=== PATIENT | female | born 1985 | race Caucasian/White ===

== ENCOUNTER 2021-08-25 22:06 | Emergency (ER) | payer SELFPAY ==
[2021-08-25 22:24] VITALS: BP 131/85; PULSE 75; RESP 18; TEMP 37.2; O2SAT 97; BMI 47.7
--- NOTE | 2021-08-25 23:34 | CTR_ITS ---
PROCEDURE INFORMATION: Exam: CT Abdomen And Pelvis Without Contrast Exam date and time: 08/26/2021 12:11 AM Age: 36 years old Clinical indication: Other: Belching; Prior surgery; Surgery date: 6+ months; Surgery type: Sindi/ tubal; Additional info: N/v/d and abdominal cramping TECHNIQUE: Imaging protocol: Computed tomography of the abdomen and pelvis without contrast. Radiation optimization: All CT scans at this facility use at least one of these dose optimization techniques: automated exposure control; mA and/or kV adjustment per patient size (includes targeted exams where dose is matched to clinical indication); or iterative reconstruction. COMPARISON: No relevant prior studies available. RADIATION DOSE METRICS: Total DLP (mGy-cm): 1715.94 FINDINGS: Liver: Normal. No mass. Gallbladder and bile ducts: The gallbladder has been removed. No biliary ductal dilatation. Pancreas: Normal. No ductal dilation. Spleen: Normal. No splenomegaly. Adrenal glands: Normal. No mass. Kidneys and ureters: A tiny renal stone is present in the superior pole of the left kidney. The kidneys appear otherwise normal. No ureteral stone or hydronephrosis. Stomach and bowel: Unremarkable. No obstruction. No mucosal thickening. Appendix: The appendix is normal. Intraperitoneal space: Unremarkable. No free air. No significant fluid collection. Vasculature: Unremarkable. No abdominal aortic aneurysm. Lymph nodes: Unremarkable. No enlarged lymph nodes. Urinary bladder: Unremarkable as visualized. Reproductive: The uterus and ovaries appear normal. Bones/joints: Unremarkable. No acute fracture. Soft tissues: Unremarkable. CT/CT abdomen pelvis wo con [id number] IMPRESSION: 1. No acute abnormality is seen in the abdomen or pelvis. 2. Nonobstructing left kidney renal stone. No ureteral stone or hydronephrosis.
--- NOTE | 2021-08-25 23:36 | W.ED.GENADLT ---
HPI - General Adult General: Chief complaint: General Medical Stated complaint: No bowel movement Time Seen by Provider: 08/25/21 23:19 History of Present Illness: Patient is a 36-year-old female comes to the ED with nausea vomiting diarrhea. Symptoms have been going on now for over [address] Frankel for her current GI issues and all testing has come back normal including stool sample labs. She has a history of a bowel obstruction and says she is having similar symptoms from that past episode. She says her bowel movements are always watery. She endorses a lot of abdominal cramping pain as well she has tried a gluten-free diet and it has not helped with symptoms. She describes feeling bloated and gassy. Endorses having nausea and decreased intake. She has had some episodes of emesis over the past week but her last episode of emesis was a couple days ago. Denies any fevers, chills, chest pain, shortness of breath, blood in stool, dysuria or hematuria. Associated symptoms: Reports nausea and vomiting; Deny chest pain, dyspnea, headache(s), rash or palpitations Review of Systems Const: Denies: fever(s), chills or fatigue Eyes: Denies: change in vision or eye discomfort ENMT: Denies: throat pain, odynophagia, nasal discharge or nasal congestion Card: Denies: chest pain, palpitations, edema, swelling of feet/ankles, dyspnea on exertion or orthopnea Resp: Denies: dyspnea, productive cough or non-productive cough GI: Reports: nausea, vomiting, diarrhea, bloating and GI cramping; Denies: abdominal pain, constipation or hematochezia : Denies: flank pain, dysuria or hematuria Musc: Denies: neck pain, back pain or extremity swelling Skin/Breast: Denies: rash or new lesions Neuro: Denies: headache(s), numbness in extremities or weakness in extremities PFSH ED PFSH: Medical History No pertinent family history Surgical History H/O tubal ligation History of cholecystectomy Physical Exam Const: COMMON NORMALS: no acute distress, patient oriented x3 and alert GENERAL APPEARANCE: cooperative and comfortable NUTRITIONAL APPEARANCE: obese morbidly obese HENMT: COMMON NORMALS: normocephalic HEAD & SCALP: normocephalic MOUTH: Normal oral and palatal mucosa present THROAT: posterior oropharynx normal and uvula midline Eye: COMMON NORMALS: Equal, round and reactive pupils present and conjunctivae normal CONJUNCTIVA: Yes conjunctivae normal PUPIL: Yes Equal, round and reactive pupils present Neck/C-Spine: COMMON NORMALS: supple GENERAL: Yes normal visual inspection Resp: COMMON NORMALS: normal respiratory effort, No retractions, No use of accessory muscles and clear to auscultation bilaterally AUSCULTATION: clear to auscultation bilaterally Cardio: COMMON NORMALS: regular rate, regular rhythm, S1 normal heart sound present, S2 normal heart sound present, No gallops present (Cardio), No clicks present (Cardio), No murmurs present (Cardio) and Peripheral pulses 2+ throughout RATE: regular rate RHYTHM: regular rhythm HEART SOUNDS: S1 normal heart sound present and S2 normal heart sound present PERIPHERAL PULSES: Peripheral pulses 2+ throughout GI: COMMON NORMALS: Normal to inspection, nondistended, normoactive bowel sounds present, Soft to palpation, non-tender and no masses INSPECTION: Yes central obesity PALPATION: Yes Soft to palpation OTHER: Patient's abdomen is nontender throughout all 4 quadrants. : COMMON NORMALS: Yes no CVA tenderness BLADDER/KIDNEY EXAM: Yes no CVA tenderness Back/Pelvis: COMMON NORMALS: no CVA tenderness Extremity: COMMON NORMALS: normal to inspection Neuro: COMMON NORMALS: patient oriented x3 and moves all extremities SENSORIUM/ORIENTATION: Yes alert Skin: GENERAL SKIN EXAM: dry skin Course Vital Signs: Vital signs: Vital Signs Temperature 99 F 08/26/21 01:08 Pulse Rate 70 08/26/21 01:08 Respiratory Rate 18 08/26/21 01:08 Blood Pressure 120/74 08/26/21 01:08 Pulse Oximetry 98 08/26/21 01:08 [facility] - General Adult Medical Decision Making Patient is a 36-year-old female comes to the ED with nausea, diarrhea and abdominal cramping. This has been a chronic issue for patient and she sees Dr. Frankel for GI issues. She states she has been through a bunch of testing notes all come back normal. Denies any fevers. Vitals are stable and patient appears nontoxic in no acute distress or pain. She has no abdominal tenderness upon palpation throughout all 4 quadrants. Rest of exam is benign. White blood cell count 11.4 and the rest of CBC, CMP, UA and lipase were unremarkable. hCG serum negative. CT of abdomen pelvis shows no acute abnormality or finding. Patient was given IV fluids and Zofran here in the ED and her symptoms improved. Patient was diagnosed with nausea, abdominal cramping diarrhea and was discharged home with a prescription for dicyclomine and Reglan. She was told to follow-up with her PCP within the next week for reevaluation. Return to ED precautions given. Patient understood agree with plan. Lab Data I reviewed the patient's lab results. : 08/25/21 23:56 08/25/21 23:56 Radiology Impressions Abdomen/Pelvis CT 08/25/21 23:34 IMPRESSION: 1. No acute abnormality is seen in the abdomen or pelvis. 2. Nonobstructing left kidney renal stone. No ureteral stone or hydronephrosis. Laboratory Results WBC 11.4 10^3/uL (4.0-10.0) H 08/25/21 23:56 RBC 5.39 10^6/uL (4.1-5.3) H 08/25/21 23:56 Hgb 14.6 g/dL (11.5-15.3) 08/25/21 23:56 Hct 42.1 % (37.0-47.0) 08/25/21 23:56 MCV 78.1 fl (81-99) L 08/25/21 23:56 MCH 27.1 pg (28.0-34.0) L 08/25/21 23:56 MCHC 34.7 g/dL (30.0-36.0) 08/25/21 23:56 RDW 13.6 % (12.1-15.1) 08/25/21 23:56 Plt Count 326 10^3/cmm (130-400) 08/25/21 23:56 MPV 9.3 fL (7.4-10.4) 08/25/21 23:56 Neut % (Auto) 62.4 % 08/25/21 23:56 Lymph % (Auto) 25.8 % 08/25/21 23:56 Gage % (Auto) 8.8 % 08/25/21 23:56 Eos % (Auto) 2.2 % 08/25/21 23:56 Baso % (Auto) 0.4 % 08/25/21 23:56 Neut # (Auto) 7.13 10^3/uL (1.8-7.7) 08/25/21 23:56 Lymph # (Auto) 3.0 10^3/uL (0.8-4.8) 08/25/21 23:56 Gage # (Auto) 1.0 10^3/uL (0.2-0.9) H 08/25/21 23:56 Eos # (Auto) 0.3 10^3/uL (0.0-0.8) 08/25/21 23:56 Baso # (Auto) 0.0 10^3/uL (0.0-0.1) 08/25/21 23:56 Nucleated RBC % (auto) 0 % 08/25/21 23:56 Nucleated RBCs # 0.0 /100WBC 08/25/21 23:56 Sodium 138 mmol/L (136-145) 08/25/21 23:56 Potassium 3.5 mmol/L (3.5-5.1) 08/25/21 23:56 Chloride 106 mmol/L (98-107) 08/25/21 23:56 Carbon Dioxide 20 mmol/L (22-29) L 08/25/21 23:56 Anion Gap 15.5 (5-19) 08/25/21 23:56 BUN 13 mg/dL (6-20) 08/25/21 23:56 Creatinine 0.8 mg/dL (0.5-0.9) 08/25/21 23:56 GFR Calculation 80.7 mL/min (90-130) L 08/25/21 23:56 Glucose 81 mg/dL (65-115) 08/25/21 23:56 Calculated Osmolality 285 mOsm/kg (285-295) 08/25/21 23:56 Calcium 8.3 mg/dL (8.5-10.5) L 08/25/21 23:56 Total Bilirubin 0.3 mg/dL (0.15-1.2) 08/25/21 23:56 AST 35 U/L (0-32) H 08/25/21 23:56 ALT 45 U/L (0-33) H 08/25/21 23:56 Alkaline Phosphatase 74 IU/L (35-105) 08/25/21 23:56 Total Protein 7.1 g/dL (6.6-8.7) 08/25/21 23:56 Albumin 3.9 g/dL (3.5-5.2) 08/25/21 23:56 Globulin 3.2 g/dL (1.3-4.6) 08/25/21 23:56 Lipase 27 U/L (13-60) 08/25/21 23:56 HCG, Qual Negative (Negative) 08/25/21 23:56 Urine Color Yellow (Yellow) 08/26/21 00:14 Urine Appearance Cloudy (CLEAR) 08/26/21 00:14 Urine pH 5 (5-7) 08/26/21 00:14 Ur Specific [place] 1.025 (1.005-1.030) 08/26/21 00:14 Urine Protein 1+ (Negative) H 08/26/21 00:14 Urine Glucose (UA) Norm (Normal) 08/26/21 00:14 Urine Ketones 1+ (Negative) H 08/26/21 00:14 Urine Blood Trace (Negative) H 08/26/21 00:14 Urine Nitrate Negative (Negative) 08/26/21 00:14 Urine Bilirubin 1+ (Negative) H 08/26/21 00:14 Urine Urobilinogen 4 mg/dL (Negative) H 08/26/21 00:14 Ur Leukocyte Esterase Negative (Negative) 08/26/21 00:14 Urine RBC 0-4 /hpf (0-2) H 08/26/21 00:14 Urine WBC 0-4 /hpf (0-5) H 08/26/21 00:14 Ur Squamous Epith Cells 0-4 /hpf (0-5) H 08/26/21 00:14 Amorphous Sediment 4+ /hpf 08/26/21 00:14 Urine Bacteria Trace /hpf (NONE) 08/26/21 00:14 Discharge Plan Discharge Patient Disposition: Home Clinical Impression: Nausea, Abdominal cramping Diarrhea Qualifiers: Diarrhea type: unspecified type Qualified Code(s): R19.7 - Diarrhea, unspecified Condition: Stable Prescriptions: New dicyclomine 20 mg tablet 20 mg PO QID PRN (Reason: Abdominal cramping) Qty: 30 0RF Reglan 10 mg tablet 10 mg PO Q6H PRN (Reason: nausea and vomiting) Qty: 20 0RF Discharge Orders: Discharge ED (Routine); Ordered 08/26/21 Ordered By: Phil Macias Discharge Diet: Advance as tolerated Discharge Activity: Increase activity as tolerated Activity Restrictions/Additional Instructions: Follow-up with your PCP within the next 7 to 10 days for reevaluation. Take medications as prescribed. Make sure you drink plenty fluids and stay hydrated. Return to the ER or your medical provider if condition worsens. Please read and understand discharge instructions. Thank you for choosing [facility] for your healthcare needs today. Please realize this is an emergency room and that we are providing you with a medical screening exam and this may not be complete and all inclusive of all the testing and or work up that you may need to determine your ailment or severity of your illness. It is very important that you follow up as instructed or that you return to the Emergency Department should you have concerns or if your condition changes or worsens in any way. Coding Level of Care Code ED Equity Manager for Deloris Young Exam Comprehensive
[2021-08-26 00:10] LABS: Basophils % 0.4 %; Eosinophils # 0.3 10^3/uL (0.0-0.8); Eosinophils % 2.2 %; Hematocrit 42.1 % (37.0-47.0); Hemoglobin 14.6 g/dL (11.5-15.3); Lymphocytes % 25.8 %; Mean Corpuscular HGB Conc 34.7 g/dL (30.0-36.0); Mean Corpuscular Hemoglobin 27.1 pg (28.0-34.0); Mean Corpuscular Volume 78.1 fl (81-99); Mean Platelet Volume 9.3 fL (7.4-10.4); Monocytes % 8.8 %; Neutrophils # 7.13 10^3/uL (1.8-7.7); Neutrophils % 62.4 %; Nucleated Red Blood Cells % 0 %; Platelet Count 326 10^3/cmm (130-400); Red Blood Count 5.39 10^6/uL (4.1-5.3); Red Cell Distribution Width 13.6 % (12.1-15.1); White Blood Count 11.4 10^3/uL (4.0-10.0)
[2021-08-26 00:13] LABS: HCG, Serum Qual Negative (Negative)
[2021-08-26] MEDS: sodium chloride 0.9% 1,000 ML 999 ML IV (00:16)
[2021-08-26] MEDS: ondansetron 2 mg/ML SDV 2 mL 4 MG IVP (00:16)
[2021-08-26 00:19] LABS: Alanine Aminotransferase 45 U/L (0-33); Albumin Level 3.9 g/dL (3.5-5.2); Alkaline Phosphatase 74 IU/L (35-105); Anion Gap 15.5 (5-19); Aspartate Amino Transferase 35 U/L (0-32); Blood Urea Nitrogen 13 mg/dL (6-20); Calcium 8.3 mg/dL (8.5-10.5); Carbon Dioxide 20 mmol/L (22-29); Chloride 106 mmol/L (98-107); Creatinine Clr Calc Pharmacy 126.5517; Globulin 3.2 g/dL (1.3-4.6); Glomerular Filtration Rate 80.7 mL/min (90-130); Glucose 81 mg/dL (65-115); Lipase 27 U/L (13-60); Osmolality Calculated 285 mOsm/kg (285-295); Potassium 3.5 mmol/L (3.5-5.1); Sodium 138 mmol/L (136-145); Total Bilirubin 0.3 mg/dL (0.15-1.2); Total Protein 7.1 g/dL (6.6-8.7)
[2021-08-26 00:22] LABS: Amorphous Sediment Urine 4+ /hpf; Bacteria Urine TRACE /hpf; Bilirubin Urine 1+ (Negative); Blood Urine Trace (Negative); Glucose Urine UA Norm (Normal); Ketones Urine 1+ (Negative); Leukocyte Esterase Urine Negative (Negative); Nitrate Urine Negative (Negative); Protein Urine 1+ (Negative); RBC Urine 0-4 /hpf (0-2); Specific Gravity, Urine 1.025 (1.005-1.030); Squamous Epithelial Cell Urine 0-4 /hpf (0-5); Urine Appearance Cloudy (CLEAR); Urine Color Yellow (Yellow); Urobilinogen Urine 4 mg/dL (Negative); WBC Urine 0-4 /hpf (0-5); pH Urine 5 (5-7)
[2021-08-26 00:23] LABS: Add Urine Culture? No; Add Urine Microscopic? YES
[2021-08-26 01:08] VITALS: BP 120/74; PULSE 70; RESP 18; TEMP 37.2; O2SAT 98
[2021-08-26 03:04] VITALS: BP 119/78; PULSE 75; RESP 18; TEMP 37.2; O2SAT 98
== END 2021-08-26 03:05 | disposition home or self-care (01) ==
PROVIDERS: Emergency Provider Physician Assistant
DX: R11.0 Nausea (principal); R10.9 Unspecified abdominal pain; R19.7 Diarrhea, unspecified
CPT/HCPCS: 74176; 80053; 81001; 83690; 84703; 85025; 96361; 96374; 99284; J2405; J7030

== ENCOUNTER 2021-10-20 06:32 | Day surgery (SDC) | payer MEDICAID, SELFPAY ==
[2021-10-16 10:37] VITALS: BMI 46.3
[2021-10-20 06:55] VITALS: BP 106/78; PULSE 76; RESP 18; TEMP 36.1; O2SAT 98
[2021-10-20] MEDS: sodium chloride 0.9% 1,000 ML 30 ML IV (07:10)
--- NOTE | 2021-10-20 07:40 | ANES.PREANE2 ---
Pre-Anesthetic Assessment Height/Weight: Height 1.63 m Weight 122.47 kg Temp Pulse Resp BP Pulse Ox O2 Del Method 97.0 F L 76 18 106/78 98 10/20/21 06:55 10/20/21 06:55 10/20/21 06:55 10/20/21 06:55 10/20/21 06:55 10/20/21 06:55 Operation Date: 10/20/21 07:45 Proposed Procedures p EGD and [id number],R19.7(Not Applicable) - Juan M Frankel MD s Colonoscopy(Not Applicable) - Juan M Frankel MD Familial anesthetic complications: None Was Beta Flex taken within 24 hours: N/A Was Clonidine taken within 24 hours: N/A Last intake: Intake Last Liquid Date 10/19/21 Last Liquid Time 23:30 Last Solid Date 10/18/21 Last Solid Time 23:30 Social Tobacco and No alcohol Exam alert, oriented x 3, clear to auscultation bilaterally and regular rate & rhythm Airway Cervical ROM: within normal limits Mallampati: Class II Dentition: full CV/HEM Hypertension GI Gastroesophageal Reflux Disease Metabolic Morbid Obesity Anesthetic Plan ASA status: 3 Anesthesia: MAC Risk of > 500 ml blood loss (7ml/kg in children): No Medications/Allergies Home Medications Medication Instructions Recorded Confirmed Last Taken Type cholecalciferol (vitamin D3) 25 25 mcg PO DAILY 09/30/21 10/16/21 Unknown History mcg (1,000 unit) chewable tablet lorazepam 0.5 mg tablet 0.5 mg PO BID PRN Anxiety 09/30/21 10/16/21 Unknown History metoprolol tartrate 50 mg tablet 50 mg PO BID 09/30/21 10/16/21 Unknown History (Lopressor) ondansetron HCl 4 mg tablet 4 mg PO Q8H 09/30/21 10/16/21 Unknown History pantoprazole 40 mg tablet,delayed 40 mg PO DAILY 09/30/21 10/16/21 Unknown History release (Protonix) trazodone 100 mg tablet 100 mg PO .AT BEDTIME 09/30/21 10/16/21 Unknown History Allergies Allergy/AdvReac Type Severity Reaction Status Date / Time No Known Allergies Allergy Unverified 10/17/21 09:57 Current Medications Generic Name Dose Route Start Last Admin Trade Name Freq PRN Reason Stop Dose Admin Sodium Chloride 1,000 mls @ 30 mls/hr 10/20/21 07:00 10/20/21 07:10 Sodium Chloride 0.9% IV 10/21/21 06:59 30 mls/hr .Q24H CINDA Administration PFSH Anesthesia Medical History (Updated 09/30/21 @ 10:21 by Carolina Elmore LPN) No pertinent family history Surgical History H/O tubal ligation History of cholecystectomy Data Anesthesia Cardiac Studies: No Data to Display
--- NOTE | 2021-10-20 07:51 | W.PM.OPSFHP ---
Same Day Surgery H&P Indication for Procedure/HPI DATE OF PROCEDURE: October 20, 2021 CHIEF COMPLAINT/INDICATIONFOR SURGICAL PROCEDURE: Chronic diarrhea PREOP DIAGNOSIS: Chronic diarrhea PLANNED PROCEDURE: Operation Date: 10/20/21 07:45 Proposed Procedures p EGD and [id number],R19.7(Not Applicable) - Juan M Frankel MD s Colonoscopy(Not Applicable) - Juan M Frankel MD Medications/Allergies* Home Medications Medication Instructions Recorded Confirmed Type cholecalciferol (vitamin D3) 25 25 mcg PO DAILY 09/30/21 10/16/21 History mcg (1,000 unit) chewable tablet lorazepam 0.5 mg tablet 0.5 mg PO BID PRN Anxiety 09/30/21 10/16/21 History metoprolol tartrate 50 mg tablet 50 mg PO BID 09/30/21 10/16/21 History (Lopressor) ondansetron HCl 4 mg tablet 4 mg PO Q8H 09/30/21 10/16/21 History pantoprazole 40 mg tablet,delayed 40 mg PO DAILY 09/30/21 10/16/21 History release (Protonix) trazodone 100 mg tablet 100 mg PO .AT BEDTIME 09/30/21 10/16/21 History Allergies/Adverse Reactions Allergy/AdvReac Type Severity Reaction Status Date / Time No Known Allergies Allergy Unverified 10/17/21 09:57 Current Medications: Generic Name Dose Route Start Last Admin Trade Name Freq PRN Reason Stop Dose Admin Sodium Chloride 1,000 mls @ 30 mls/hr 10/20/21 07:00 10/20/21 07:10 Sodium Chloride 0.9% IV 10/21/21 06:59 30 mls/hr .Q24H CINDA Administration Pertinent History/Comorbid Conditions* Medical History (Updated 09/03/21 @ 00:00 by ) No pertinent family history Surgical History (Updated 08/25/21 @ 23:42 by BRONSON Bhardwaj) H/O tubal ligation History of cholecystectomy Pertinent Exam Findings alert, oriented x 3, clear to auscultation bilaterally, regular rate & rhythm, operative site marked and procedure specific exam findings Recommendations Surgery/Procedure today Coding Level of Care Code Acute Diaphragm Builder for Deloris Young
[2021-10-20 08:03] LABS: OR HCG Qualitative Urine Negative (Negative)
[2021-10-20 08:14] VITALS: BP 130/70; PULSE 89; RESP 16; TEMP 36.2; O2SAT 94
--- NOTE | 2021-10-20 08:22 | ANE.PACU2 ---
Inpatient post-anesthesia follow up: Airway intact: Yes Vital signs: Temperature 97.1 F Pulse Rate 89 Respiratory Rate 16 Blood Pressure 130/70 Pulse Oximetry 94 Oxygen Delivery Me thod Room Air Oxygen Flow Rate Fraction of Inspir ed Oxygen Hydration adequate: Yes Nausea and vomiting: No Pain level: 1 Mental status: Baseline
--- NOTE | 2021-10-20 08:23 | ANE.PACU2 ---
Inpatient post-anesthesia follow up: Vital signs: Temperature 97.1 F Pulse Rate 89 Respiratory Rate 16 Blood Pressure 130/70 Pulse Oximetry 94 Oxygen Delivery Me thod Room Air Oxygen Flow Rate Fraction of Inspir ed Oxygen
[2021-10-20 08:29] VITALS: BP 116/77; PULSE 80; RESP 18; O2SAT 98
== END 2021-10-20 08:45 | disposition home or self-care (01) ==
PROVIDERS: Anesthesiology; PCP Nurse Practitioner Family; Visit Provider Internal Medicine
PROC: 0DJ08ZZ Inspection of Upper Intestinal Tract, Via Natural or Artificial Opening Endoscopic (ICD-10-PCS; CPT 43235; principal; 2021-10-20 07:45)
PROC: 0DJD8ZZ Inspection of Lower Intestinal Tract, Via Natural or Artificial Opening Endoscopic (ICD-10-PCS; CPT 45378; 2021-10-20 07:45)
DX: K52.9 Noninfective gastroenteritis and colitis, unspecified (principal); I10 Essential (primary) hypertension; K21.9 Gastro-esophageal reflux disease without esophagitis; E66.01 Morbid (severe) obesity due to excess calories; Z68.42 Body mass index [BMI] 45.0-49.9, adult; K29.80 Duodenitis without bleeding; B96.89 Other specified bacterial agents as the cause of diseases classified elsewhere
CPT/HCPCS: 43239; 45378; 81025; 82274; 83630; 84703; 87493; 87506; 88305; 88313; 88342; J2704; J7030